=== PATIENT | female | born 1970 | race Caucasian/White ===

== ENCOUNTER 2024-02-12 20:20 | Emergency (ER) | payer OTHER ==
[2024-02-12 21:08] LABS: Bacteria/HPF None Seen HPF (None Seen); Bilirubin Negative (Negative); Blood, Urine Negative (Negative); CAUTI Indications for Culture Fever or rigors; Clarity Clear (Clear); Glucose, Urine (Dipstick) 500 mg/dL (Negative); Ketone, Urine Negative (Negative); Leukocyte 25 Leu/uL (Negative); Nitrite Negative (Negative); Protein, Urine (Dipstick) Negative (Neg-Trace); RBC/HPF 0-3 HPF (0-3); Specific Gravity, Urine 1.005 (1.002-1.036); Squamous Epithelial 0-3 HPF (0-3); Urobilinogen Normal mg/dL (Less than 2); pH, Urine 7.5 (5.0-9.0)
[2024-02-12 21:12] LABS: Urine Culture Reflex No No
[2024-02-12] MEDS ORDERED: Ondansetron ODT 4 MG TAB ONE (21:35)
[2024-02-12 21:38] LABS: #Basophils 0.06 10x3/uL (0.0-0.2); %Basophils 0.5 % (0.0-1.0); %Eosinophils 3.6 % (0.0-10.0); %Lymphocytes 15.4 % (21.0-51.0); %Monocytes 6.9 % (0.0-10.0); %Neutrophils 73.2 % (42.0-75.0); Hematocrit 44.4 % (36.0-47.0); Hemoglobin 13.7 g/dL (12.0-16.0); Mean Corpuscular HGB CONC 30.9 g/dL (32.0-36.0); Mean Corpuscular Hemoglobin 28.6 pg (27.0-31.0); Mean Corpuscular Volume 92.7 fL (78.0-98.0); Mean Platelet Volume 9.1 fL (7.4-10.4); Platelet Count 169 10x3/uL (130-400); RBC Distribution Width 14.6 % (11.5-14.5); Red Blood Cell (RBC) Count 4.79 mill/uL (4.20-5.40)
[2024-02-12 21:57] LABS: Sodium 141 mmol/L (136-145)
[2024-02-12 21:58] LABS: Albumin 3.9 g/dL (3.5-5.0); Chloride 109 mmol/L (98-107); Potassium 3.9 mmol/L (3.5-5.1)
[2024-02-12 21:59] LABS: Glucose 100 mg/dL (70-105); Protein, Total 7.9 g/dL (6.0-8.3)
[2024-02-12 22:00] LABS: Anion Gap 20 mmol/L (10-20); Carbon Dioxide 16 mmol/L (22-29)
[2024-02-12 22:02] LABS: Alkaline Phosphatase 109 U/L (40-110); Bilirubin, Total 0.2 mg/dL (0.2-1.2)
[2024-02-12 22:03] LABS: BUN (Urea Nitrogen) 10 mg/dL (9.8-20.1); Calc. Creatinine Clearance 0 mL/min (70-130); Estimated GFR 44; Lipase 59 U/L (8-78)
[2024-02-12 22:05] LABS: ALT (SGPT) 49 U/L (8-55); AST (SGOT) 37 U/L (5-34)
[2024-02-12] MEDS ORDERED: Ibuprofen 800 MG TAB ONE (22:35)
[2024-02-12] MEDS ORDERED: Acetaminophen 500 MG TAB ONE (22:35)
== END 2024-02-12 22:45 | disposition home or self-care (01) ==
LOC: ERS 20:20
DX: R11.2 Nausea with vomiting, unspecified (principal)
CPT/HCPCS: 36415; 80053; 81001; 83690; 85025; 87428; 99284; Q0162